=== PATIENT | female | born 1955 | race Two or more races ===

== ENCOUNTER 2018-10-29 18:56 | Inpatient (IN) | payer MEDICARE, OTHER ==
[~2018-10-29] VITALS: Ht 162.6 cm; Wt 46.3 kg
--- NOTE | 2018-10-29 19:06 | Emergency Room Report ---
History of Present Illness General Chief Complaint: Altered Mental Status Source: Patient, Family Member, EMS Present Illness HPI Patient presents via EMS after having altered mentation after dialysis. She is confused.Lapps exam without localized weakness. Full dialysis was performed. The patient is confused and unable to answer questions. Initially she is unable to state where she was born. According to the daughter she has had altered mentation since shoulder surgery in September. Allergies: Coded Allergies: No Known Allergies (Unverified , 10/29/18) Patient History Limited by: medical condition - confused Past Medical History: see triage record Past Surgical History: other - Shoulder surgery right and dialysis fistula Social History: Denies: smoking, alcohol use Social History Narrative born [facility] Reviewed Nursing Documentation: PMH: Agreed; PSxH: Agreed Nursing Documentation-PMH Past Medical History: No History, Except For Hx Hypertension: Yes Hx Diabetes: Yes Hx Dialysis: Yes - M/W/F Review of Systems All Other Systems: limited Physical Exam Vital Signs Date Time Temp Pulse Resp B/P (MAP) Pulse Ox O2 Delivery O2 Flow Rate FiO2 10/29/18 18:43 97.9 78 18 201/97 (131) 98 Room Air Sp02 EP Interpretation: reviewed, normal General Appearance: no apparent distress, alert - Confused, thin, Chronically Ill Head: normocephalic, atraumatic Eyes: left eye other - opacity pterygium bilaterally ENT: moist mucus membranes Neck: full range of motion, supple Respiratory: lungs clear, normal breath sounds Cardiovascular #1: regular rate, rhythm, no edema Cardiovascular #2: 2+ radial (R) Gastrointestinal: normal inspection, normal bowel sounds, non tender, no mass, non-distended Genitourinary: no CVA tenderness Musculoskeletal: other - amp R forefoot Neurologic: alert, motor strength/tone normal, DTRs symmetric, sensory intact, speech normal, oriented - X1 Psychiatric: other - Confused Skin: pallor - Sallow Medical Decision Making Diagnostic Impression: Primary Impression: Altered mental status Qualified Codes: R41.0 - Disorientation, unspecified Additional Impressions: Acute encephalopathy Hypertension Qualified Codes: I15.1 - Hypertension secondary to other renal disorders; N28.89 - Other specified disorders of kidney and ureter Pulmonary edema Qualified Codes: J81.1 - Chronic pulmonary edema Status post right shoulder surgery ER Course The patient presents with increased confusion after dialysis. Differential includes uremia, other metabolic encephalopathy, exacerbation of dementia, occult infection, acute postdialysis syndrome amongst others. Evaluation with EKG, chest x-ray and labs. Exam does not reveal focal neurologic findings however CT of the head is indicated. Patient placed on threat monitoring analyst. Catheterized urine sample needed. EKG without changes. Labs with chronic renal failure and elevated BNP. White count normal. Urinalysis clear. CT without bleed or mass-effect. Chronic renal failure. Elevated BNP. Daughter spoke with the patient. She says that she has been altered since September when she had shoulder surgery. She states her mother is at her baseline at this time. I suggested the patient still needed to be admitted for observation and she agreed. Evidence of pulmonary edema on chest. Discussed with Dr. Galvez. She complaining about right shoulder pain. Morphine and Zofran given. Hypertension treated with hydralazine and Norvasc. Improved with treatment but needing observation and reevaluation. Laboratory Tests Test 10/29/18 19:29 10/29/18 19:55 White Blood Count 8.0 K/UL (4.8-10.8) Red Blood Count 3.81 M/UL (4.20-5.40) L Hemoglobin 12.3 G/DL (12.0-16.0) Hematocrit 38.5 % (37.0-47.0) Mean Corpuscular Volume 101 FL (80-99) H Mean Corpuscular Hemoglobin 32.3 PG (27.0-31.0) H Mean Corpuscular Hemoglobin Concent 31.9 G/DL (32.0-36.0) L Red Cell Distribution Width 16.4 % (11.6-14.8) H Platelet Count 148 K/UL (150-450) L Mean Platelet Volume 6.4 FL (6.5-10.1) L Neutrophils (%) (Auto) 76.3 % (45.0-75.0) H Lymphocytes (%) (Auto) 11.8 % (20.0-45.0) L Monocytes (%) (Auto) 9.0 % (1.0-10.0) Eosinophils (%) (Auto) 2.3 % (0.0-3.0) Basophils (%) (Auto) 0.6 % (0.0-2.0) Erythrocyte Sedimentation Rate 30 MM/HR (0-30) Prothrombin Time 11.9 SEC (9.30-11.50) H Prothrombin Time INR 1.1 (0.9-1.1) PTT 31 SEC (23-33) Sodium Level 141 MMOL/L (136-145) Potassium Level 3.3 MMOL/L (3.5-5.1) L Chloride Level 99 MMOL/L (98-107) Carbon Dioxide Level 32 MMOL/L (21-32) Anion Gap 11 mmol/L (5-15) Blood Urea Nitrogen 31 mg/dL (7-18) H Creatinine 3.4 MG/DL (0.55-1.30) H Estimate Glomerular Filtration Rate 13.7 mL/min (>60) Glucose Level 178 MG/DL (74-106) H Calcium Level 9.5 MG/DL (8.5-10.1) Magnesium Level 2.1 MG/DL (1.8-2.4) Total Bilirubin 0.9 MG/DL (0.2-1.0) Aspartate Amino Transferase (AST) 21 U/L (15-37) Alanine Aminotransferase (ALT) 14 U/L (12-78) Alkaline Phosphatase 123 U/L (46-116) H Ammonia 27 umol/L (11-32) Total Creatine Kinase 47 U/L (26-308) Troponin I 0.017 ng/mL (0.000-0.056) Pro-B-Type Natriuretic Peptide > 19368 pg/mL (0-125) H Total Protein 7.8 G/DL (6.4-8.2) Albumin 3.6 G/DL (3.4-5.0) Globulin 4.2 g/dL Albumin/Globulin Ratio 0.9 (1.0-2.7) L Urine Color Pale yellow Urine Appearance Clear Urine pH 8 (4.5-8.0) Urine Specific [place] 1.010 (1.005-1.035) Urine Protein 4+ (NEGATIVE) H Urine Glucose (UA) 2+ (NEGATIVE) H Urine Ketones Negative (NEGATIVE) Urine Blood 2+ (NEGATIVE) H Urine Nitrite Negative (NEGATIVE) Urine Bilirubin Negative (NEGATIVE) Urine Urobilinogen Normal MG/DL (0.0-1.0) Urine Leukocyte Esterase Negative (NEGATIVE) Urine RBC 2-4 /HPF (0 - 2) H Urine WBC 0-2 /HPF (0 - 2) Urine Squamous Epithelial Cells Few /LPF (NONE/OCC) Urine Bacteria Few /HPF (NONE) EKG Diagnostic Results Rate: normal Rhythm: NSR ST Segments: no acute changes - Right axis with incomplete right bundle branch block Rhythm Strip Diag. Results EP Interpretation: yes Rhythm: NSR, no PVC's, no ectopy Chest X-Ray Diagnostic Results Chest X-Ray Diagnostic Results : Chest X-Ray Ordered: Yes # of Views/Limited/Complete: 1 View Indication: Other EP Interpretation: Yes Interpretation: no effusion, no pneumothorax, other - chf Impression: Other CT/MRI/US Diagnostic Results CT/MRI/US Diagnostic Results : Imaging Test Ordered: head Impression no bleed or mass Last Vital Signs Date Time Temp Pulse Resp B/P (MAP) Pulse Ox O2 Delivery O2 Flow Rate FiO2 10/30/18 04:00 78 10/30/18 04:00 98.2 18 150/60 (90) 95 10/29/18 23:30 Nasal Cannula 2.0 Status: improved Disposition: PLACE IN OBSERVATION Condition: Serious Kunal Sung MD Oct 29, 2018 19:06
[2018-10-29 19:36] VITALS: BP 201/97
[2018-10-29 19:57] LABS: BASOPHILS % (AUTO) 0.6 % (0.0-2.0); EOSINOPHILS % (AUTO) 2.3 % (0.0-3.0); HEMATOCRIT 38.5 % (37.0-47.0); HEMOGLOBIN 12.3 G/DL (12.0-16.0); LYMPHOCYTES % (AUTO) 11.8 % (20.0-45.0); MEAN CORPUSCULAR VOLUME 101 FL (80-99); NEUTROPHILS % (AUTO) 76.3 % (45.0-75.0); PLATELET COUNT 148 K/UL (150-450); RED BLOOD COUNT 3.81 M/UL (4.20-5.40); RED CELL DISTRIBUTION WIDTH 16.4 % (11.6-14.8)
[2018-10-29 20:02] LABS: INR 1.1 (0.9-1.1)
[2018-10-29 20:08] LABS: AMMONIA 27 umol/L (11-32); ANION GAP 11 mmol/L (5-15); BLOOD UREA NITROGEN 31 mg/dL (7-18); CALCIUM 9.5 MG/DL (8.5-10.1); CARBON DIOXIDE 32 MMOL/L (21-32); CHLORIDE 99 MMOL/L (98-107); CREATININE 3.4 MG/DL (0.55-1.30); POTASSIUM 3.3 MMOL/L (3.5-5.1); SODIUM 141 MMOL/L (136-145)
[2018-10-29 20:17] LABS: ALANINE AMINOTRANSFERASE 14 U/L (12-78); ALBUMIN 3.6 G/DL (3.4-5.0); ALBUMIN/GLOBULIN RATIO 0.9 (1.0-2.7); ALKALINE PHOSPHATASE 123 U/L (46-116); ASPARTATE AMINO TRANSFERASE 21 U/L (15-37); BILIRUBIN,TOTAL 0.9 MG/DL (0.2-1.0); CREATINE KINASE 47 U/L (26-308)
[2018-10-29 20:24] LABS: APPEARANCE,URINE CLEAR; BILIRUBIN, URINE NEGATIVE (NEGATIVE); COLOR,URINE PALE YELLOW; GLUCOSE, URINE (UA) 2+ (NEGATIVE); KETONES,URINE NEGATIVE (NEGATIVE); LEUKOCYTE ESTERASE ,URINE NEGATIVE (NEGATIVE); NITRITE,URINE NEGATIVE (NEGATIVE); PH,URINE 8 (4.5-8.0); PROTEIN,URINE 4+ (NEGATIVE); UROBILINOGEN,URINE NORMAL MG/DL (0.0-1.0)
[2018-10-29] MEDS ORDERED: Morphine Sulfate 2mg/ml Inj(IV/IM USE ONLY) IVP ONE (21:00)
[2018-10-29 22:54] VITALS: BP 155/53
[2018-10-29 23:00] VITALS: BP 153/65
[2018-10-30 04:00] VITALS: BP_SYST 150; BP_SYST 152; BP_DIAS 60; BP_DIAS 74
[2018-10-30] MEDS: NovoLOG Insulin Flexpen SUBQ SCH ×4 (06:34→20:59)
[2018-10-30 07:29] LABS: BASOPHILS % (AUTO) 0.6 % (0.0-2.0); EOSINOPHILS % (AUTO) 2.9 % (0.0-3.0); HEMATOCRIT 37.8 % (37.0-47.0); LYMPHOCYTES % (AUTO) 18.7 % (20.0-45.0); MEAN CORPUSCULAR VOLUME 103 FL (80-99); MONOCYTES % (AUTO) 9.5 % (1.0-10.0); NEUTROPHILS % (AUTO) 68.4 % (45.0-75.0); PLATELET COUNT 135 K/UL (150-450); RED BLOOD COUNT 3.69 M/UL (4.20-5.40); RED CELL DISTRIBUTION WIDTH 16.5 % (11.6-14.8); WHITE BLOOD COUNT 5.7 K/UL (4.8-10.8)
[2018-10-30 08:00] VITALS: BP 168/75
[2018-10-30 08:02] LABS: ANION GAP 10 mmol/L (5-15); BLOOD UREA NITROGEN 42 mg/dL (7-18); CALCIUM 9.2 MG/DL (8.5-10.1); CARBON DIOXIDE 32 MMOL/L (21-32); CHLORIDE 102 MMOL/L (98-107); CREATININE 4.4 MG/DL (0.55-1.30); POTASSIUM 4.1 MMOL/L (3.5-5.1); SODIUM 143 MMOL/L (136-145)
[2018-10-30] MEDS: Heparin 5000 units/ml inj SUBQ SCH ×2 (08:46→20:59)
[2018-10-30] MEDS: Labetalol 200mg tab ORAL SCH ×2 (08:46→22:38)
--- NOTE | 2018-10-30 10:45 | Diagnostic Imaging Report ---
Indications: Altered level consciousness Technique: Spiral acquisitions obtained through the brain. Angled axial and coronal 5 x 5 mm slices were reconstructed. Total dose length product 1344.27 mGycm. CTDI vol(s) 70.38 mGy. Dose reduction achieved using automated exposure control Comparison: None. Findings: There is age-related enlargement of the ventricles and extra axial CSF spaces. There is periventricular deep white matter low-attenuation, consistent with chronic microvascular ischemic change. No acute intracranial hemorrhage or edema. No mass effect or midline shift. Normal cedeño-white differentiation. Old lacunar infarcts are seen in the bilateral thalami. The optic globes are abnormal, with calcification of the left lens and possible displacement. The right lens is located in the posterior aspect of the optic globe. The sinuses are clear. The mastoids are clear. Impression: Chronic and age-related changes as described, including old bilateral basal ganglia lacunar infarcts Negative for acute intracranial bleed or mass effect Note dislocation of the lens of the right optic globe This agrees with the preliminary interpretation provided overnight by [facility]. The CT scanner at [facility] is accredited by the [employer] and the scans are performed using protocols designed to limit radiation exposure to as low as reasonably achievable to attain images of sufficient resolution adequate for diagnostic evaluation.
--- NOTE | 2018-10-30 11:16 | Cardiology Report ---
APPROVED REPORT EKG Measurement Heart [id number] Suspect arm lead reversal, interpretation assumes no reversal Normal sinus rhythm Rightward axis Incomplete right bundle branch block Cannot rule out Anterior infarct, age undetermined Abnormal ECG
[2018-10-30 12:00] VITALS: BP 138/72
--- NOTE | 2018-10-30 13:11 | Diagnostic Imaging Report ---
Indication: Shortness of breath Technique: One view of the chest Comparison: none Findings: The heart is enlarged. There is bilateral interstitial edema. There may be some airspace edema as well. There are questionable trace bilateral pleural effusions. Atelectatic changes are seen at both lung bases. There are surgical clips in the right neck. There is a left subclavian venous stent. There are median sternotomy sutures Impression: Cardiomegaly with bilateral interstitial edema and possibly some airspace edema as well
--- NOTE | 2018-10-30 14:11 | History & Physical ---
History of Present Illness General Reason for Hospitalization: Altered Mental Status Present Illness Allergies: Coded Allergies: No Known Allergies (Unverified , 10/29/18) Patient History Healthcare decision maker Resuscitation status Full Code Advanced Directive on File Review of Systems Review of Symptoms The patient is confused at baseline. Denies any present concerns, signs or symptoms. Physical Exam Physical Exam General appearance: resting, easily awoken Head: Normocephalic, without obvious abnormality, atraumatic Eyes: Left eye opacity Throat: Lips, mucosa, and tongue normal. Teeth and gums normal Neck: supple, symmetrical, trachea midline, no adenopathy, thyroid: not enlarged, symmetric, no tenderness/mass/nodules, no carotid bruit and no JVD Lungs: clear to auscultation bilaterally Heart: regular rate and rhythm, S1, S2 normal, no murmur, click, rub or gallop Abdomen: soft, non-tender. Bowel sounds normal. No masses, no organomegaly Extremities: extremities normal, atraumatic, no cyanosis or edema Pulses: 2+ and symmetric to all four extremities Skin: Skin color, texture, turgor normal. 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 Last 24 Hour Vital Signs Date Time Temp Pulse Resp B/P (MAP) Pulse Ox O2 Delivery O2 Flow Rate FiO2 10/30/18 12:00 98.7 73 18 138/72 (94) 94 10/30/18 12:00 73 10/30/18 09:00 Room Air 10/30/18 08:46 74 163/75 10/30/18 08:00 73 10/30/18 08:00 98.7 74 18 168/75 (106) 96 10/30/18 04:00 78 10/30/18 04:00 98.2 71 18 150/60 (90) 95 10/29/18 23:30 Nasal Cannula 2.0 10/29/18 23:06 97.9 72 19 155/53 96 Room Air 10/29/18 23:00 76 10/29/18 23:00 98.2 77 18 153/65 (94) 95 10/29/18 22:54 97.9 72 19 155/53 96 Room Air 10/29/18 22:08 74 185/55 10/29/18 21:52 206/67 10/29/18 21:32 97.9 10/29/18 19:36 97.9 78 18 201/97 98 Room Air 10/29/18 19:36 78 18 Room Air 10/29/18 18:43 97.9 78 18 / (131) 98 Room Air Intake and Output 10/29/18 10/30/18 19:00 07:00 Intake Total 0 ml Balance 0 ml Intake Oral 0 ml Laboratory Tests Test 10/29/18 19:29 10/29/18 19:55 10/30/18 05:30 White Blood Count 8.0 K/UL (4.8-10.8) 5.7 K/UL (4.8-10.8) Red Blood Count 3.81 M/UL (4.20-5.40) L 3.69 M/UL (4.20-5.40) L Hemoglobin 12.3 G/DL (12.0-16.0) 12.0 G/DL (12.0-16.0) Hematocrit 38.5 % (37.0-47.0) 37.8 % (37.0-47.0) Mean Corpuscular Volume 101 FL (80-99) H 103 FL (80-99) H Mean Corpuscular Hemoglobin 32.3 PG (27.0-31.0) H 32.5 PG (27.0-31.0) H Mean Corpuscular Hemoglobin Concent 31.9 G/DL (32.0-36.0) L 31.7 G/DL (32.0-36.0) L Red Cell Distribution Width 16.4 % (11.6-14.8) H 16.5 % (11.6-14.8) H Platelet Count 148 K/UL (150-450) L 135 K/UL (150-450) L Mean Platelet Volume 6.4 FL (6.5-10.1) L 6.4 FL (6.5-10.1) L Neutrophils (%) (Auto) 76.3 % (45.0-75.0) H 68.4 % (45.0-75.0) Lymphocytes (%) (Auto) 11.8 % (20.0-45.0) L 18.7 % (20.0-45.0) L Monocytes (%) (Auto) 9.0 % (1.0-10.0) 9.5 % (1.0-10.0) Eosinophils (%) (Auto) 2.3 % (0.0-3.0) 2.9 % (0.0-3.0) Basophils (%) (Auto) 0.6 % (0.0-2.0) 0.6 % (0.0-2.0) Erythrocyte Sedimentation Rate 30 MM/HR (0-30) Prothrombin Time 11.9 SEC (9.30-11.50) H Prothromb Time International Ratio 1.1 (0.9-1.1) Activated Partial Thromboplast Time 31 SEC (23-33) Sodium Level 141 MMOL/L (136-145) 143 MMOL/L (136-145) Potassium Level 3.3 MMOL/L (3.5-5.1) L 4.1 MMOL/L (3.5-5.1) Chloride Level 99 MMOL/L (98-107) 102 MMOL/L (98-107) Carbon Dioxide Level 32 MMOL/L (21-32) 32 MMOL/L (21-32) Anion Gap 11 mmol/L (5-15) 10 mmol/L (5-15) Blood Urea Nitrogen 31 mg/dL (7-18) H 42 mg/dL (7-18) H Creatinine 3.4 MG/DL (0.55-1.30) H 4.4 MG/DL (0.55-1.30) H Estimat Glomerular Filtration Rate 13.7 mL/min (>60) 10.2 mL/min (>60) Glucose Level 178 MG/DL (74-106) H 148 MG/DL (74-106) H Calcium Level 9.5 MG/DL (8.5-10.1) 9.2 MG/DL (8.5-10.1) Magnesium Level 2.1 MG/DL (1.8-2.4) Total Bilirubin 0.9 MG/DL (0.2-1.0) Aspartate Amino Transf (AST/SGOT) 21 U/L (15-37) Alanine Aminotransferase (ALT/SGPT) 14 U/L (12-78) Alkaline Phosphatase 123 U/L (46-116) H Ammonia 27 umol/L (11-32) Total Creatine Kinase 47 U/L (26-308) Troponin I 0.017 ng/mL (0.000-0.056) Pro-B-Type Natriuretic Peptide > 98928 pg/mL (0-125) H Total Protein 7.8 G/DL (6.4-8.2) Albumin 3.6 G/DL (3.4-5.0) Globulin 4.2 g/dL Albumin/Globulin Ratio 0.9 (1.0-2.7) L Urine Color Pale yellow Urine Appearance Clear Urine pH 8 (4.5-8.0) Urine Specific [place] 1.010 (1.005-1.035) Urine Protein 4+ (NEGATIVE) H Urine Glucose (UA) 2+ (NEGATIVE) H Urine Ketones Negative (NEGATIVE) Urine Blood 2+ (NEGATIVE) H Urine Nitrite Negative (NEGATIVE) Urine Bilirubin Negative (NEGATIVE) Urine Urobilinogen Normal MG/DL (0.0-1.0) Urine Leukocyte Esterase Negative (NEGATIVE) Urine RBC 2-4 /HPF (0 - 2) H Urine WBC 0-2 /HPF (0 - 2) Urine Squamous Epithelial Cells Few /LPF (NONE/OCC) Urine Bacteria Few /HPF (NONE) Height (Feet): 5 Height (Inches): 4.00 Weight (Pounds): 111 Medications Current Medications Medications (Trade) Dose Ordered Sig/Ahmet Route PRN Reason Start Time Stop Time Status Last Admin Dose Admin Acetaminophen (Tylenol) 500 mg Q6HR PRN ORAL Mild Pain/Temp > 100.5 10/29/18 23:45 11/28/18 23:44 Dextrose (Dextrose 50%) 25 ml Q30M PRN IV Hypoglycemia 10/29/18 23:45 11/28/18 23:44 Dextrose (Dextrose 50%) 50 ml Q30M PRN IV Hypoglycemia 10/29/18 23:45 11/28/18 23:44 Heparin Sodium (Porcine) (Heparin 5000 units/ml) 5,000 units EVERY 12 HOURS SUBQ 10/30/18 09:00 11/29/18 08:59 10/30/18 08:46 Heparin Sodium (Porcine) (Heparin Sod 1000 units/ml 10ml) 2,000 unit ONCE ONCE IV 10/30/18 22:30 10/30/18 22:31 Insulin Aspart (NovoLOG) BEFORE MEALS AND HS SUBQ 10/30/18 06:30 11/29/18 06:29 10/30/18 12:04 Labetalol HCl (Normodyne) 200 mg Q12HR ORAL 10/30/18 09:00 11/29/18 08:59 10/30/18 08:46 Sodium Chloride 1,000 ml @ 500 mls/hr Q2H PRN IVLG sbp<90 during hd 10/30/18 22:20 11/29/18 22:19 Objective Narrative This is a 63 y.o female who arrived yesterday from hemodialysis for increased confusion. She has a hx of right shoulder surgery, dementia, acute encephalopathy, ESRD w/ HD yesterday, HTN and Left eye blindness. The patient had R shoulder surgery at [facility] in September. At that time, the same symptoms of increased confusion were noted. Sh Presently, the patient is observed eating and ambulating to the restroom. She remains confused, as observed prior. Pt is to remain for hemodialysis today, and for further observation. Assessment/Plan Status: stable Assessment/Plan: HD today CBC, BMP tomorrow Keep patient on pocket maker. Observation here and consideration for discharge tomorrow if patient stable. [facility] Hospital declaration INPATIENT level of care is warranted for this patient because patient is a 89 year old with who presents with suspicion of . I have a high level of concern because . Patient is at high risk for . Plan of care/treatment include . Patient care is expected to be greater than 2 midnights. OBSERVATION level of care is warranted for this patient. Patient is a 89 year old with who presents with . Patient will be admitted for 1 midnight, but if additional night(s) is/are necessary, patient will be converted to inpatient status for the entire hospitalization Disposition: Once the patient is stable to leave the hospital, I anticipate the patient will likely be discharged to the following environment: Estimated discharge date: I spent 70 minutes on this patient's case, and minutes was dedicated to counseling and/or care coordination. MIPS (Merit-based Incentive Payment System) Applicable CPT: 13507, 26413 CHECK ALL THAT ARE MET: Measure #5 (CHF): All ages. Prescribe DELMY/ARB upon discharge for patients with left ventricular systolic dysfunction. If not, the reason is clearly documented in the medical chart. Measure #8 (CHF): All ages. Prescribe a beta shane upon discharge for patients with left ventricular systolic dysfunction. If not, the reason is clearly documented in the medical chart. Measure #47 Advance care plan or surrogate decision maker documented in the medical record. Measure #130 The provider has documented, updated, or reviewed the patients current medication list and has documented it in the patients note. Measure #374 (All): Send report to referring provider. Measure #407(Sepsis due to MSSA bacteremia): Age 18+ Patient treated with a beta-lactam antibiotic (Nafcillin, Oxacillin or Cefazolin) as definitive therapy. MEDICAL COMPLEXITY High complexity medical decision making (need 2/3 categories) Problem - need 4 points Acute/new problem with new plan for workup (4 points, 1 max) Acute/new problem without additional workup (3 points, 1 max) Unstable chronic problem actively being managed (2 point each, 2 max) Stable chronic problem actively being managed (1 point each, 2 max) Self-limited/transient process (constipation, muscle ache, etc) (1 point each , 2 max) Data - need 4 points Reviewed labs/imaging studies (1 points, 2 max) Independent review of imaging (EKG, xrays, etc) (2 points, 2 max) Discussed case with consult/other MD/RN (2 points, 2 max) High Risk - qualify if have one of the following: Severe exacerbation of acute problem, acute mental status change, IV narcotics , monitoring drug levels (vancomycin, INR, tacrolimus etc) Ronna Chacon N.P. Oct 30, 2018 14:11
[2018-10-30 16:00] VITALS: BP 139/75
[2018-10-30] MEDS: Acetaminophen 500mg (ES) tab ORAL PRN (17:55)
[2018-10-30 20:00] VITALS: BP 141/69
[2018-10-30] MEDS ORDERED: Heparin Sod 1000 units/ml 10ml IV ONE (22:30)
[2018-10-31] VITALS (8 sets, daily range): BP systolic 142–180; BP diastolic 60–87
[2018-10-31] MEDS: Acetaminophen 500mg (ES) tab ORAL PRN ×2 (04:28→19:53)
[2018-10-31] MEDS: NovoLOG Insulin Flexpen SUBQ SCH ×4 (06:30→20:34)
[2018-10-31 06:42] LABS: BASOPHILS % (AUTO) 0.9 % (0.0-2.0); EOSINOPHILS % (AUTO) 2.7 % (0.0-3.0); HEMATOCRIT 40.7 % (37.0-47.0); HEMOGLOBIN 12.7 G/DL (12.0-16.0); LYMPHOCYTES % (AUTO) 22.1 % (20.0-45.0); MEAN CORPUSCULAR VOLUME 103 FL (80-99); MONOCYTES % (AUTO) 13.8 % (1.0-10.0); NEUTROPHILS % (AUTO) 60.5 % (45.0-75.0); PLATELET COUNT 156 K/UL (150-450); RED BLOOD COUNT 3.97 M/UL (4.20-5.40); WHITE BLOOD COUNT 4.4 K/UL (4.8-10.8)
[2018-10-31 06:44] LABS: ANION GAP 10 mmol/L (5-15); BLOOD UREA NITROGEN 46 mg/dL (7-18); CALCIUM 9.3 MG/DL (8.5-10.1); CARBON DIOXIDE 31 MMOL/L (21-32); CHLORIDE 103 MMOL/L (98-107); CREATININE 4.6 MG/DL (0.55-1.30); POTASSIUM 4.7 MMOL/L (3.5-5.1); SODIUM 144 MMOL/L (136-145)
[2018-10-31] MEDS: Labetalol 200mg tab ORAL SCH ×2 (08:34→20:33)
[2018-10-31] MEDS: Heparin 5000 units/ml inj SUBQ SCH ×2 (08:35→20:35)
[2018-10-31] MEDS ORDERED: HydrALAZINE 10mg Tab ORAL SCH ×2 (09:41→11:44)
--- NOTE | 2018-10-31 11:34 | Nephrology Progress Note ---
Assessment/Plan Assessment Pulmonary Edema Acute Encephalopathy ESRD-HD T, (received yesterday) L eye blindness AMS hypertension R toe amputations/healed R shoulder surgery/healed Intermittent confusion Plan Hemodialysis tomorrow Monitor hypertension CBC, BMP tomorrow morning Subjective Constitutional: Reports: no symptoms HEENT: Reports: no symptoms Genitourinary: Reports: no symptoms Neurologic/Psychiatric: Reports: no symptoms Subjective Ms. Araujo is a 63 y.o Italian speaking female who denies any new signs/ symptoms/concerns at this time. She wants to know when she will be discharged. Objective Objective Last 24 Hour Vital Signs Date Time Temp Pulse Resp B/P (MAP) Pulse Ox O2 Delivery O2 Flow Rate FiO2 10/31/18 09:48 187/83 10/31/18 09:00 Room Air 10/31/18 08:34 79 177/71 10/31/18 08:00 76 10/31/18 08:00 98.4 79 19 177/71 (106) 95 10/31/18 04:00 73 10/31/18 04:00 98.5 75 18 169/85 (113) 95 10/31/18 00:00 98.3 74 18 142/87 (105) 99 10/31/18 00:00 74 10/30/18 22:38 81 141/69 10/30/18 21:00 Room Air 10/30/18 20:00 79 10/30/18 20:00 98.8 81 18 141/69 (93) 100 10/30/18 16:00 98.5 71 18 139/75 (96) 93 10/30/18 16:00 79 10/30/18 12:00 98.7 73 18 138/72 (94) 94 10/30/18 12:00 73 Intake and Output 10/30/18 10/31/18 19:00 07:00 Intake Total 780 ml Balance 780 ml Intake Oral 420 ml Other 360 ml # Voids 2 2 Laboratory Tests 10/31/18 06:20: White Blood Count 4.4L, Red Blood Count 3.97L, Hemoglobin 12.7, Hematocrit 40.7 , Mean Corpuscular Volume 103H, Mean Corpuscular Hemoglobin 31.9H, Mean Corpuscular Hemoglobin Concent 31.1L, Red Cell Distribution Width 16.0H, Platelet Count 156, Mean Platelet Volume 6.7, Neutrophils (%) (Auto) 60.5, Lymphocytes (%) (Auto) 22.1, Monocytes (%) (Auto) 13.8H, Eosinophils (%) (Auto) 2.7, Basophils (%) (Auto) 0.9, Sodium Level 144, Potassium Level 4.7, Chloride Level 103, Carbon Dioxide Level 31, Anion Gap 10, Blood Urea Nitrogen 46H, Creatinine 4.6H, Estimat Glomerular Filtration Rate 9.6, Glucose Level 117H, Calcium Level 9.3 Height (Feet): 5 Height (Inches): 4.00 Weight (Pounds): 106 General Appearance: no apparent distress, alert EENT: other Neck: non-tender, supple, normal inspection Cardiovascular: normal peripheral pulses, normal rate, no JVD, other Respiratory/Chest: lungs clear, normal breath sounds, no respiratory distress Abdomen: normal bowel sounds, non tender, soft, no organomegaly Extremities: normal range of motion, non-tender, other 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 Will add on another 5mg Hydralazine now, and PRN 10mg Hydralazine for hypertension. Ronna Chacon N.P. Oct 31, 2018 11:34
[2018-11-01 00:30] VITALS: BP 150/64
[2018-11-01 04:00] VITALS: BP 148/66
[2018-11-01] MEDS: NovoLOG Insulin Flexpen SUBQ SCH (06:30)
[2018-11-01] MEDS ORDERED: Acetaminophen 500mg (ES) tab ORAL PRN (06:56)
[2018-11-01 07:41] LABS: BASOPHILS % (AUTO) 2.4 % (0.0-2.0); EOSINOPHILS % (AUTO) 2.2 % (0.0-3.0); HEMATOCRIT 39.9 % (37.0-47.0); HEMOGLOBIN 12.6 G/DL (12.0-16.0); LYMPHOCYTES % (AUTO) 24.1 % (20.0-45.0); MEAN CORPUSCULAR VOLUME 102 FL (80-99); MONOCYTES % (AUTO) 13.3 % (1.0-10.0); NEUTROPHILS % (AUTO) 58.1 % (45.0-75.0); PLATELET COUNT 170 K/UL (150-450); RED BLOOD COUNT 3.92 M/UL (4.20-5.40); WHITE BLOOD COUNT 4.1 K/UL (4.8-10.8)
[2018-11-01 07:50] LABS: ANION GAP 12 mmol/L (5-15); BLOOD UREA NITROGEN 65 mg/dL (7-18); CALCIUM 9.6 MG/DL (8.5-10.1); CARBON DIOXIDE 26 MMOL/L (21-32); CHLORIDE 102 MMOL/L (98-107); CREATININE 6.2 MG/DL (0.55-1.30); POTASSIUM 5.3 MMOL/L (3.5-5.1); SODIUM 140 MMOL/L (136-145)
[2018-11-01 08:00] VITALS: BP 167/62
[2018-11-01] MEDS: Labetalol 200mg tab ORAL SCH ×2 (08:46→10:38)
[2018-11-01] MEDS ORDERED: Heparin 5000 units/ml inj SUBQ SCH (09:00)
[2018-11-01 10:38] VITALS: BP 190/91
[2018-11-01] MEDS ORDERED: NovoLOG Insulin Flexpen SUBQ SCH (11:30)
--- NOTE | 2018-11-01 12:40 | Nephrology Progress Note ---
Assessment/Plan Assessment Pulmonary Edema Acute Encephalopathy ESRD-HD T, (received yesterday) L eye blindness AMS hypertension R toe amputations/healed R shoulder surgery/healed Intermittent confusion Plan Hemodialysis completed Discharging patient now. Subjective Constitutional: Reports: no symptoms HEENT: Reports: no symptoms Genitourinary: Reports: no symptoms Neurologic/Psychiatric: Reports: no symptoms Subjective Ms. Araujo is a 63 y.o Vietnamese speaking female who denies any new signs/ symptoms/concerns at this time. She reports feeling well. Objective Objective Last 24 Hour Vital Signs Date Time Temp Pulse Resp B/P (MAP) Pulse Ox O2 Delivery O2 Flow Rate FiO2 11/01/18 10:38 67 190/91 11/01/18 08:15 Room Air 11/01/18 08:00 98.7 69 19 167/62 (97) 95 11/01/18 04:00 97.8 79 18 148/66 (93) 98 11/01/18 00:37 150/64 11/01/18 00:30 97.6 77 18 150/64 (92) 98 10/31/18 21:00 Room Air 10/31/18 21:00 70 154/68 (96) 10/31/18 20:33 71 180/73 10/31/18 20:00 97.4 72 18 180/73 (108) 96 10/31/18 17:35 146/87 (106) 10/31/18 16:42 175/76 10/31/18 16:00 98.6 74 18 175/76 (109) 99 Intake and Output 10/31/18 11/01/18 19:00 07:00 Intake Total 480 ml 240 ml Balance 480 ml 240 ml Intake Oral 480 ml 240 ml # Voids 3 Laboratory Tests 11/01/18 07:15: White Blood Count 4.1L, Red Blood Count 3.92L, Hemoglobin 12.6, Hematocrit 39.9 , Mean Corpuscular Volume 102H, Mean Corpuscular Hemoglobin 32.0H, Mean Corpuscular Hemoglobin Concent 31.5L, Red Cell Distribution Width 17.0H, Platelet Count 170, Mean Platelet Volume 7.1, Neutrophils (%) (Auto) 58.1, Lymphocytes (%) (Auto) 24.1, Monocytes (%) (Auto) 13.3H, Eosinophils (%) (Auto) 2.2, Basophils (%) (Auto) 2.4H, Sodium Level 140, Potassium Level 5.3H, Chloride Level 102, Carbon Dioxide Level 26, Anion Gap 12, Blood Urea Nitrogen 65H, Creatinine 6.2H, Estimat Glomerular Filtration Rate 6.8, Glucose Level 120H , Calcium Level 9.6 Height (Feet): 5 Height (Inches): 4.00 Weight (Pounds): 102 General Appearance: WD/WN, no apparent distress EENT: PERRL/EOMI Neck: non-tender, normal alignment, supple, normal inspection Cardiovascular: normal peripheral pulses, normal rate, regular rhythm Respiratory/Chest: chest wall non-tender, lungs clear, normal breath sounds, no respiratory distress Abdomen: normal bowel sounds, non tender, soft Extremities: non-tender, normal inspection 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 Family at bedside. HD completed and gauze noted to left arm/dry/clean. Ronna Chacon N.P. Nov 01, 2018 12:40
[2018-11-01] MEDS ORDERED: LABETALOL HCL200 MG ORAL (13:40)
--- NOTE | 2018-11-01 19:22 | Discharge Summary ---
Discharge Summary Discharge Summary _ DATE OF ADMISSION: 10/31/2018 DATE OF DISCHARGE: 11/01/2018 DISCHARGED BY: Dr. Sylvie Galvez BRIEF HOSPITAL COURSE: Patient is a 63-year-old female, who presented from dialysis due to increased confusion after dialysis. Patient has history of right shoulder surgery, dementia, acute encephalopathy, end-stage renal disease on hemodialysis, hypertension and left eye blindness. The patient had right shoulder surgery at [facility] in September. At that time, same symptoms of increased confusion were noted. On evaluation at ED, blood pressure was elevated to 1/97, pulse rate 78. Blood work did not show any leukocytosis. Hemoglobin 12, hematocrit 38. Sodium 141, potassium 3.3. Creatinine 3.4. Troponin was negative. Urinalyses was negative. proBNP was elevated to> 35,000. CT of the head did not show any acute intracranial bleed or mass-effect. There was chronic age-related changes and old bilateral basal ganglia lacunar infarcts. Chest x-ray showed cardiomegaly with bilateral interstitial edema and airspace edema. She was given hydralazine and Norvasc for elevated blood pressure. She was then admitted for evaluation of altered mental status/encephalopathy. She was admitted to monitored bed. Blood glucose was monitored and was given insulin sliding scale. She was given labetalol for blood pressure control. She was given hydralazine as needed. She was given inpatient hemodialysis. She did not have any new signs or symptoms or concerns. She reported feeling well. She was eventually cleared for discharge home. FINAL DIAGNOSES: Pulmonary edema Acute encephalopathy End-stage renal disease on hemodialysis every Monday and Monday Left eye blindness Hypertension Right toe amputation healed Right shoulder surgery healed Intermittent confusion DISPOSITION: Patient was discharged home. DISCHARGE MEDICATIONS: Refer to Discharge Medication List. DISCHARGE INSTRUCTIONS: Follow-up in a week. I have been assigned to complete a discharge summary on this account, I was not involved with the patient's management.--LOUISE Cotto Jacqueline Robles NP Nov 01, 2018 19:22
--- NOTE | 2018-11-07 08:39 | Coder Physician Query ---
PLEASE COMPLETE DOCUMENT BEFORE SIGNING Dear Dr. Galvez Date: 11/07/18 House Nurse/CDS Name: Taisha, CCS Exercise your independent professional judgment when responding to query. Question asked do not imply a particular answer is desired/expected. Clinical Documentation States: This is a 63 y.o female who arrived yesterday from hemodialysis for increased confusion. She was then admitted for evaluation of altered mental status/encephalopathy. Severe exacerbation of acute problem, acute mental status change, IV narcotics, monitoring drug levels (vancomycin, INR, tacrolimus etc) --------- Please indicate the underlying cause of the confusion/encephalopathy if known below: Physician response: AMS due to OBS and Uremia Sylvie Galvez M.D. Date & Time Please also document in your Progress Notes and/or Discharge Summary and indicate if the condition was present on admission. MTDD
== END 2018-11-01 15:30 | disposition home or self-care (01) | DRG 682 ==
LOC: EDBD 18:56 → EMR 20:35 → 2E 21:05 → EDBEDREQ 22:03 → OBSVTOIN 10-31 11:02 → 4E 11-01 06:18
PROC: 5A1D70Z Performance of Urinary Filtration, Intermittent, Less than 6 Hours Per Day (ICD-10-PCS; principal; 2018-10-30)
DX: I12.0 Hypertensive chronic kidney disease with stage 5 chronic kidney disease or end stage renal disease (principal); N18.6 End stage renal disease; G93.40 Encephalopathy, unspecified; J81.1 Chronic pulmonary edema; R41.82 Altered mental status, unspecified; F03.90 Unspecified dementia, unspecified severity, without behavioral disturbance, psychotic disturbance, mood disturbance, and anxiety; Z99.2 Dependence on renal dialysis; H54.62 Unqualified visual loss, left eye, normal vision right eye; F09 Unspecified mental disorder due to known physiological condition
CPT/HCPCS: 36415; 70450; 71045; 80048; 80053; 81003; 82140; 82550; 82962; 83735; 83880; 84484; 85025; 85610; 85651; 85730; 87081; 93005; 96374; 96375; 99284; J1815; J2405